=== PATIENT | male | born 1945 | race Caucasian/White ===

== ENCOUNTER 2016-12-10 21:06 | Inpatient (IN) | payer OTHER ==
--- NOTE | ~2016-12-10 | HP ---
History And Physical [address] [place]. [address] NAME: NATALEE FERRELL : 49 STATUS : ADM Anthony PAT#: [id number] AGE: 71 ADM/REG DATE : 12/10/16 MR#: [id number] REPORT SERV DATE: 12/11/16 DICTATED BY: FARIDA PIZARRO JR. DATE: 12/11/16 REPORT STATUS : Draft TRANSCRIBED BY: MODGirish DATE: 12/11/16 DATE OF ADMISSION: 12/10/2016 CHIEF COMPLAINT: Hernia. HISTORY OF PRESENT ILLNESS: This is a 71-year-old male who presented to the emergency department with 3 days history of swelling in the right groin. He says he has had a history of hernia for at least a year or so, but it has worsened. He has been unable to eat. He has had no good bowel movement. He has been able to void. He denies any vomiting. He was found to have hernia in the ER which has not been able to be reduced. He did have a CT scan which reportedly showed the hernia containing parts of bowel but no evidence of any obstruction. He is admitted for additional evaluation and treatment. PAST MEDICAL HISTORY: His past medical history is remarkable for history of thyroid disease and gout. No other known surgery. MEDICATIONS: Hydrocodone, gout medication, and Synthroid of unknown dose. FAMILY HISTORY: Remarkable for hypertension. SOCIAL HISTORY: He lives with his son. He does not smoke or drink. He is retired. REVIEW OF SYSTEMS: No fever or chills. HEENT: Negative. NEUROLOGIC: No acute symptoms. SKIN: Negative. RESPIRATORY: Negative. CV: No symptoms. GI: As above. : As above. MUSCULOSKELETAL: Some swelling. ENDOCRINE: Negative. HEMATOLOGIC: Negative. IMMUNOLOGIC: Negative. PSYCHIATRIC: Negative. PHYSICAL EXAMINATION: GENERAL: Exam shows an elderly male, who is in no acute distress. VITAL SIGNS: The temperature is 99, blood pressure is 135/96, heart rate is 109, and respirations 18. HEENT: Head and neck exam shows pupils are equal and reactive. He is edentulous. Mucous membranes are slightly dry. NECK: Supple. LUNGS: His lungs are clear bilaterally. CARDIOVASCULAR: Exam shows normal S1, S2 without murmur. History And Physical [address] [address] NAME: NATALEE FERRELL : 49 STATUS : ADM Anthony PAT#: [id number] AGE: 71 ADM/REG DATE : 12/10/16 MR#: [id number] REPORT SERV DATE: 12/11/16 DICTATED BY: FARIDA PIZARRO JR. DATE: 12/11/16 REPORT STATUS : Draft TRANSCRIBED BY: VENKATESH DATE: 12/11/16 ABDOMEN: Soft, nontender. There is a hernia on the right side which is not able to be reducible. It is somewhat tender upon attempts to reduce. There is no erythema. EXTREMITIES: Show no clubbing, cyanosis, or edema. Affect, there appears to be some evidence of mental slowness. DATA: Laboratory studies are reviewed and remarkable for a sodium of 124. IMPRESSION: 1. Incarcerated hernia without evidence of strangulation. 2. Hyponatremia. PLAN: We will plan to proceed with admission, give IV fluids for hydration. We will go ahead and place Carey catheter to decompress the bladder and look towards repairing the hernia and labs were corrected from 12/12/2016. BEATRIS/VENKATESH Farida Pizarro Jr., M.D. / [id number] CC: Isabel Hayes Jr., M.D.
--- NOTE | ~2016-12-10 | DS ---
Discharge Summary [facility] [address] [place]. [address] NAME: NATALEE FERRELL : 49 STATUS : DIS IN PAT#: [id number] AGE: 71 ADM/REG DATE : 12/10/16 MR#: [id number] REPORT SERV DATE: 12/21/16 DICTATED BY: FARIDA PIZARRO JR. DATE: 12/20/16 REPORT STATUS : Draft TRANSCRIBED BY: VENKATESH DATE: 12/20/16 Data Collection from hospitalization DISCHARGE DIAGNOSIS(ES): 1. Incarcerated inguinal hernia. 2. History of thyroid disease. 3. Gout. 4. Hyponatremia. CONSULTATIONS: Severiano Butler M.D. PROCEDURES PERFORMED: 1. CT of the abdomen and pelvis without contrast, 12/10/2016. 2. Repair of incarcerated right inguinal hernia with right orchiectomy, 12/12/2016. PATHOLOGY: Inguinal hernia sac, hyperemic, fibrofatty connective tissue with edema and reactive stromal cells, no neoplasm. Testicle, right inguinal orchiectomy, atrophic, no neoplasm identified. MEDICATIONS: Zyloprim 300 mg daily, Synthroid 75 mcg daily, and Hayward 10/325 one three times daily as needed. CONDITION AT DISCHARGE: Upon discharge, he did appear to be doing well and had no complaints. DISPOSITION: He had been discharged home to continue a soft diet with activity as discussed. He was to call my office for an appointment for 10 to 14 days. Follow up with Dr. Jose Mendoza on 12/19/2016. HOSPITAL COURSE: This 71-year-old male had presented to the emergency department with a 3- day history of swelling in the right groin. He said that he had a history of hernia for at least a year or so but it had worsened. He had been unable to eat. He had had no good bowel movement. He had been able to void. He denied any vomiting. He was found to have a hernia in the emergency room which had not been able to be reduced. He did have a CT scan which reportedly showed the hernia containing parts of bowel but no evidence of any obstruction. He was admitted for additional evaluation and treatment. Upon admission to the hospital, he had been placed on oxygen at 2 to 3 L by nasal cannula as needed. He was begun on an n.p.o. diet. He had been placed on IV fluids with normal saline at 125 mL/h. He was placed on Dilaudid at 0.5 to 1 mg IV every two hours as needed as well as Zofran 4 mg IV every 8 hours as needed. He did undergo the above CT of the abdomen and pelvis without contrast while in the emergency room. Following the day of admission, he was continued on his current medications and had no new complaints noted. Surgery had been discussed with the patient, and he was agreeable to proceed. He had been taken to the operating room on 12/12/2016 where he did undergo the above inguinal hernia repair as well as orchiectomy. He did tolerate this well and was transferred to the recovery room. On postop day #1, he did appear to be doing well and had no complaints. His diet was being slowly advanced. He had also been seen by Dr. Severiano Butler Jr, as he was noted to be hyponatremic. At that point, he had received 3 L of normal saline and infusion as well as lactated Ringer's since Discharge Summary [address] [address] NAME: NATALEE FERRELL : 49 STATUS : DIS IN PAT#: [id number] AGE: 71 ADM/REG DATE : 12/10/16 MR#: [id number] REPORT SERV DATE: 12/21/16 DICTATED BY: FARIDA PIZARRO JR. DATE: 12/20/16 REPORT STATUS : Draft TRANSCRIBED BY: VENKATESH DATE: 12/20/16 his initial presentation and had appeared to be normal volemic and was experiencing a reasonable appetite and oral intake. His TSH was noted to be elevated at 90.6. However, it was unclear his adherence to his medical regimen at home, but considering his elevated TSH level and is unknown dosage at the time of entry, it was unlikely that he had been taking his medication as prescribed and his sodium had trended from 124 to 139 and back to 127 with noted IV hydration. He had been restarted on his Synthroid and was also placed on a 1200 mL fluid restriction. On 12/14/2016, the patient did look better, and his Carey catheter was removed. His labs were still being monitored. His sodium was at 127. He did remain in stable condition and as he continued to do well was then discharged on 12/15/2016 with the above instructions. Information collected by: Trevon Luna. I submit the above information as my discharge summary. RW/MODL Farida Pizarro Jr., M.D. / [id number] CC: Isabel Hayes Jr., M.D. Donald Franklin Jr, M.D.
--- NOTE | ~2016-12-10 | OP ---
Record Of Operation [facility] [address] [place]. [address] NAME: NATALEE FERRELL : 49 STATUS : ADM IN PAT#: [id number] AGE: 71 ADM/REG DATE : 12/10/16 MR#: [id number] REPORT SERV DATE: 12/13/16 DICTATED BY: FARIDA PIZARRO JR. DATE: 12/12/16 REPORT STATUS : Draft TRANSCRIBED BY: MODL DATE: 12/12/16 DATE OF PROCEDURE: 12/12/2016 SURGEON: Dr. Farida Pizarro. MANAGER WATER: Fausto Gallego. PROCEDURE: Repair of incarcerated right inguinal hernia with right orchiectomy. PREOPERATIVE DIAGNOSIS: Incarcerated inguinal hernia. POSTOPERATIVE DIAGNOSIS: Incarcerated inguinal hernia. ANESTHESIA: General. INDICATIONS: This patient had presented with inguinal hernia which was irreducible. This appeared to be consistent with chronic incarceration. He also had severe hyponatremia and hypothyroidism. He was given IV fluids with partial correction of his hyponatremia and operative repair of the hernia was indicated. FINDINGS: On exploration of the area, there was incarcerated indirect inguinal hernia. The hernia sac did contain the cecum and appendix with some fluid. All bowel was viable. This was reduced. The sac was excised. There was just swelling of the testicle with gelatinous material around it. It was felt that because of the size of the indirect defect that satisfactory repair could not be accomplished without sacrifice of the testicle and especially with the abnormal appearance, it was felt this was appropriate and this allowed better inguinal floor repair. No additional findings were encountered. DESCRIPTION OF PROCEDURE: With adequate general anesthesia, the patient was placed in the supine position. The abdomen was prepped and draped sterilely. A curvilinear incision was made in the groin and incision deepened down through the subcutaneous tissues. The fascia and the external oblique was opened and the underlying hernia sac was identified. This was opened to allow decompression of the fluid and the fascia was opened to allow reduction of the bowel back from the sac in the scrotum. Then the indirect area was opened to allow reduction of the contents back into the peritoneal cavity. Then, the cord was identified and the testicle was identified. It was noted there was extreme swelling. This was dissected free of the sac and again it was elected to proceed with excision of the testicle. The vessels were clamped and divided securing all bleeders with ligatures of silk and also the sac with suture ligature and then this was submitted to Pathology as additional specimen. Bleeding was then assured. Then a Parietex ProGrip mesh was utilized to repair the floor securing it medially to pubic tubercle, superiorly conjoined tendon, transversalis, and inferior to the inguinal ligament. This produced satisfactory repair of the internal, the external oblique was then closed over this with running 2-0 Vicryl, subcutaneous tissues with 3-0 Vicryl, skin with dermal Monocryl. Sterile dressings were applied. The patient left the operating room in satisfactory condition. Record Of Operation [facility] [address] [place]. [address] NAME: NATALEE FERRELL : 49 STATUS : ADM IN [facility]#: [id number] AGE: 71 ADM/REG DATE : 12/10/16 MR#: [id number] REPORT SERV DATE: 12/13/16 DICTATED BY: FARIDA PIZARRO JR. DATE: 12/12/16 REPORT STATUS : Draft TRANSCRIBED BY: VENKATESH DATE: 12/12/16 ESTIMATED BLOOD LOSS: Was 50 mL. BEATRIS/VENKATESH Farida Pizarro Jr., M.D. / [id number] CC: Isabel Hayes Jr., M.D.
--- NOTE | ~2016-12-10 | CN ---
Consultation Report [facility] [address] [place]. [address] NAME: NATALEE FERRELL : 49 STATUS : ADM IN PAT#: [id number] AGE: 71 ADM/REG DATE : 12/10/16 MR#: [id number] REPORT SERV DATE: 12/13/16 DICTATED BY: TO WHYTE JR DATE: 12/13/16 REPORT STATUS : Draft TRANSCRIBED BY: MODL DATE: 12/13/16 CONSULTATION DATE OF CONSULTATION: REASON FOR CONSULTATION: Hyponatremia. HISTORY OF PRESENT ILLNESS: This is a fairly pleasant 71-year-old male patient, who reports to [facility] with a primary complaint on 12/11/2016 of probable hernia. He had swelling for three days prior to his right groin and was evaluated in the emergency department. CT scan reportedly showed hernia containing part of his bowel with no evidence of obstruction and he was admitted to the services of Dr. Liao for additional recommendations and treatment. He underwent surgical repair on 12/12/2016, of incarcerated right inguinal hernia with orchidectomy under general anesthesia. In review of his records, he did receive over his admission since 12/11/2016, 3 L of normal saline, as well as lactated Ringer's in the operative theater. It appears on review of his laboratories that are available at least at this point here at [facility], he is chronically hyponatremic with an entry sodium of 124, rising to 127 on 12/11/2016, on 12/12/2016 at 130, and again today of 127, prompting referral to our service for evaluation for hyponatremia. The patient is awake and alert, sitting at the bedside this afternoon. He is a rather poor historian, he is awake and alert to assessment. He does interact well and answer questions. He however does not have a very good grasp on his medical history. PAST MEDICAL HISTORY: By previous dictations show to be positive for hypothyroidism and gout. FAMILY HISTORY: Positive for hypertension. No evidence of end-stage renal disease or chronic kidney disease. ALLERGIES: HE LISTS NO KNOWN ALLERGIES OF HIS ACTIVE MEDICATIONS AT HOME. HOME MEDICATIONS: Active medications at home include Apex 1 tablet p.o. t.i.d. p.r.n. gout, medication which was initially undefined, which is now dosed I believe with allopurinol, and also a thyroid medication which was undefined, which was eventually found to be Synthroid. Reviewed with the pharmacy REVIEW OF SYSTEMS: review of systems is completed. Please see HPI for pertinent details. Again, the patient is a rather spotty historian and very little in the way of medical history is gained from discussion this morning. SOCIAL HISTORY: No ETOH. No illicit drugs. Positive for smokeless tobacco. Declines chronic smoking or other tobacco abuse. Consultation Report [address] [place]. [address] NAME: NATALEE FERRELL : 49 STATUS : ADM IN PAT#: [id number] AGE: 71 ADM/REG DATE : 12/10/16 MR#: [id number] REPORT SERV DATE: 12/13/16 DICTATED BY: TO WHYTE JR DATE: 12/13/16 REPORT STATUS : Draft TRANSCRIBED BY: VENKATESH DATE: 12/13/16 PHYSICAL EXAMINATION: VITAL SIGNS: Blood pressure 119/68, he is on 2 L nasal cannula and saturating at 99%, temperature 96.6, respiratory rate of 14, heart rate is 67 beats per minute and regular. GENERAL: He is awake, alert, and oriented x3. Sitting at bedside during evaluation. HEENT: Normocephalic and atraumatic. Normal ocular movements. No scleral icterus. No conjunctival pallor is appreciated. NECK: Supple without thyromegaly. No JVD or mass. CHEST: Shows positive S1 and S2. No rubs or gallops. LUNGS: Diminished with normal expansion and effort bilaterally. GASTROINTESTINAL: Positive bowel sounds to all four quadrants. No appreciable mass or tenderness. GENITOURINARY: Examination is deferred. He does have a Carey catheter to bedside drainage with clear yellow urine. NEUROLOGIC: He appears to be grossly intact and nonfocal to rudimentary testing. SKIN: Warm, dry, and intact to visualized surfaces with exception of his surgical wound in his abdominal area. PSYCHIATRIC: Neurologically he is intact and is of appropriate mood and affect. LABORATORY AND DIAGNOSTIC DATA: Pertinent laboratories and imaging to this evaluation; sodium 127; potassium 4.5, chloride 99, CO2 of 24, BUN 8, creatinine 1.10. Reflected GFR at 68 mL/minutes. Glucose of 109, calcium 7.8, magnesium 1.8. Total protein 7.2, albumin 3.2, alkaline phos 51, ALT and AST 39 and 16 respectively. WBC is 11.5, RBC 3.57, platelets 350, hemoglobin 11.3, hematocrit 33.0, and TSH at 90.6. IMPRESSION AND PLAN: This is a pleasant 71-year-old male patient, admitted to Dr. Liao's service for reasons as stated in the HPI. He is postop day #2, with what appears to be some level of chronic hyponatremia. He has received 3 L of normal saline and infusion as well of lactated Ringer's since initial presentation here at [facility]. He appears to be at this point normal volemic and is experiencing reasonable appetite and p.o. intake. He continues to receive normal saline via a peripheral IV at 100 mL/h. His TSH is noted to be elevated at 90.6, and it is unclear his adherence to his medical regimen at home, but considering his elevated TSH level and is unknown dosage at time of entry, it is unlikely that he has been taking his medications as prescribed. His sodium has trended from 124 to 139, and back to 127, with noted IV hydration as above. 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 Fortunately, his Synthroid has been restarted here and we will now place him on a 1200 mL fluid restriction, check urine osmolality, serum osmolality, and urine sodium, and identify any other underlying mechanisms that may be precipitating his hyponatremia in review of his medications. Currently, it does not appear that he has active medications at home or here inpatient that may be further worsening his what appears to be a chronic hyponatremia. We will follow him with serial laboratories, recheck his sodium in the morning, and defer his TSH management to the primary team, and likely his outpatient physician on discharge. Further modification of treatment plan may be made based on clinical presentation of the patient's laboratory results, further consultation with renal Consultation Report [facility] [id number] [place]. [address] NAME: NATALEE FERRELL : 49 STATUS : ADM IN [facility] WITH [facility]#: [id number] AGE: 71 ADM/REG DATE : 12/10/16 MR#: [id number] REPORT SERV DATE: 12/13/16 DICTATED BY: TO WHYTE JR DATE: 12/13/16 REPORT STATUS : Draft TRANSCRIBED BY: VENKATESH DATE: 12/13/16 attending. We appreciate the consultation. We are glad to follow with you. DICTATED BY: Hever Walters NP JR/VENKATESH To Whyte Jr, M.D. / [id number] CC: Isabel Hayes Jr., M.D.
[2016-12-10 20:08] LABS: BASOPHILS 0.1 %; BASOPHILS ABSOLUTE 0.01 10/3/uL (0.0-0.16); EOSINOPHILS 5.4 %; EOSINOPHILS ABSOLUTE 0.47 10/3/uL (0.0-0.53); ER CBC TAT 0 Hrs 07 Mins; HEMATOCRIT 37.8 % (40.0-51.0); HEMOGLOBIN 13.3 g/dL (13.6-17.8); IMMATURE GRANULOCYTES 0.2 %; IMMATURE GRANULOCYTES ABSOLUTE 0.02 10/3/uL (0.0-0.11); LYMPHOCYTES 30.7 %; LYMPHOCYTES ABSOLUTE 2.67 10/3/uL (0.67-4.30); MEAN CORPUS HGB CONC 35.2 g/dL (32.0-36.0); MEAN CORPUSCULAR HEMOGLOB 31.4 pg (26.0-34.0); MEAN CORPUSCULAR VOLUME 89.4 fL (80-100); MEAN PLATELET VOLUME 8.8 fL (9.2-13.0); MONOCYTES 7.2 %; MONOCYTES ABSOLUTE 0.63 10/3/uL (0.21-1.20); NEUTROPHILS 56.4 %; NEUTROPHILS ABSOLUTE 4.91 10/3/uL (2.02-8.40); PLATELET COUNT 375 10/3/uL (150-400); RED CELL COUNT 4.23 10/6/uL (4.7-6.1); WHITE BLOOD CELLS 8.7 10/3/uL (4.5-10.5)
[2016-12-10 20:09] LABS: MANUAL DIFF NO %
[2016-12-10 20:22] LABS: A/G RATIO 0.9 (0.7-1.9); ALKALINE PHOSPHATASE 64 U/L (45-117); BUN (BLOOD UREA NITROGEN) 10 MG/DL (6-23); CALCIUM, SERUM 9.1 MG/DL (8.5-10.4); CHLORIDE, SERUM 88 MMOL/L (96-112); CO2 (CARBON DIOXIDE) 28 MMOL/L (24-34); CREATININE 1.27 MG/DL (0.70-1.30); GFR AFRICAN AMERICAN 66 ML/MIN (>=60); GFR NON AFRICAN AMERICAN 57 ML/MIN (>=60); GLOBULIN 4.7 G/DL (2.5-4.1); GLUCOSE, SERUM 97 MG/DL (60-99); POTASSIUM, SERUM 3.7 MMOL/L (3.5-5.3); SGOT(AST) 104 U/L (5-40); SGPT(ALT) 62 U/L (5-65); SODIUM, SERUM 124 MMOL/L (135-148); TOTAL BILIRUBIN 0.8 MG/DL (0-1.2); TOTAL PROTEIN 8.7 G/DL (6.0-8.5)
[2016-12-10 21:12] LABS: ASCORBIC ACID (UR NOT ORDER) NEG (NEG); BILIRUBIN, URINE NEGATIVE (NEG); ER URINALYSIS TAT 0 Hrs 09 Mins; KETONE, URINE NEGATIVE (NEG); LEUKOCYTE ESTERASE(NOT OR TRACE (NEG); NITRITE (URINE) NEG (NEG); WBC (NOT ORDERED) (RFLEX) 8 (0-5)
[2016-12-10] MEDS ORDERED: Z300 PO (22:45)
[2016-12-10] MEDS ORDERED: NORCO1 TAB PO (22:45)
[2016-12-10] MEDS ORDERED: SYN075 PO (22:46)
[2016-12-11 10:09] LABS: BUN (BLOOD UREA NITROGEN) 8 MG/DL (6-23); CALCIUM, SERUM 8.5 MG/DL (8.5-10.4); CHLORIDE, SERUM 95 MMOL/L (96-112); CO2 (CARBON DIOXIDE) 26 MMOL/L (24-34); CREATININE 1.07 MG/DL (0.70-1.30); GFR AFRICAN AMERICAN 82 ML/MIN (>=60); GFR NON AFRICAN AMERICAN 70 ML/MIN (>=60); GLUCOSE, SERUM 92 MG/DL (60-99); POTASSIUM, SERUM 4.4 MMOL/L (3.5-5.3); SODIUM, SERUM 127 MMOL/L (135-148); T3 UPTAKE 27 % (30-45)
[2016-12-11 10:13] LABS: T4 (THYROXINE) TOTAL < 0.5 MCG/DL (4.5-12.0)
[2016-12-12 06:06] LABS: BASOPHILS 0.1 %; BASOPHILS ABSOLUTE 0.01 10/3/uL (0.0-0.16); EOSINOPHILS 4.9 %; EOSINOPHILS ABSOLUTE 0.37 10/3/uL (0.0-0.53); HEMOGLOBIN 11.6 g/dL (13.6-17.8); IMMATURE GRANULOCYTES 0.3 %; IMMATURE GRANULOCYTES ABSOLUTE 0.02 10/3/uL (0.0-0.11); LYMPHOCYTES 29.7 %; LYMPHOCYTES ABSOLUTE 2.22 10/3/uL (0.67-4.30); MEAN CORPUS HGB CONC 34.4 g/dL (32.0-36.0); MEAN PLATELET VOLUME 8.9 fL (9.2-13.0); MONOCYTES ABSOLUTE 0.52 10/3/uL (0.21-1.20); NEUTROPHILS ABSOLUTE 4.34 10/3/uL (2.02-8.40); PLATELET COUNT 352 10/3/uL (150-400); RED CELL COUNT 3.63 10/6/uL (4.7-6.1); WHITE BLOOD CELLS 7.5 10/3/uL (4.5-10.5)
[2016-12-12 06:07] LABS: HEMATOCRIT 33.7 % (40.0-51.0); MANUAL DIFF NO %; MEAN CORPUSCULAR VOLUME 92.8 fL (80-100)
[2016-12-12 06:24] LABS: A/G RATIO 0.8 (0.7-1.9); ALBUMIN 3.2 G/DL (3.5-5.0); BUN (BLOOD UREA NITROGEN) 7 MG/DL (6-23); CALCIUM, SERUM 7.9 MG/DL (8.5-10.4); CHLORIDE, SERUM 96 MMOL/L (96-112); CO2 (CARBON DIOXIDE) 30 MMOL/L (24-34); CREATININE 1.14 MG/DL (0.70-1.30); GFR AFRICAN AMERICAN 76 ML/MIN (>=60); GFR NON AFRICAN AMERICAN 65 ML/MIN (>=60); GLOBULIN 3.8 G/DL (2.5-4.1); GLUCOSE, SERUM 78 MG/DL (60-99); POTASSIUM, SERUM 4.3 MMOL/L (3.5-5.3); SGOT(AST) 71 U/L (5-40); SGPT(ALT) 42 U/L (5-65); SODIUM, SERUM 130 MMOL/L (135-148)
[2016-12-12 06:25] LABS: ALKALINE PHOSPHATASE 52 U/L (45-117); TOTAL BILIRUBIN 1.7 MG/DL (0-1.2)
[2016-12-12 17:49] LABS: BASOPHILS 0.4 %; BASOPHILS ABSOLUTE 0.03 10/3/uL (0.0-0.16); EOSINOPHILS 4.7 %; EOSINOPHILS ABSOLUTE 0.39 10/3/uL (0.0-0.53); HEMATOCRIT 33.6 % (40.0-51.0); HEMOGLOBIN 11.5 g/dL (13.6-17.8); IMMATURE GRANULOCYTES 0.1 %; IMMATURE GRANULOCYTES ABSOLUTE 0.01 10/3/uL (0.0-0.11); LYMPHOCYTES 26.3 %; LYMPHOCYTES ABSOLUTE 2.16 10/3/uL (0.67-4.30); MEAN CORPUS HGB CONC 34.2 g/dL (32.0-36.0); MEAN CORPUSCULAR HEMOGLOB 31.4 pg (26.0-34.0); MEAN CORPUSCULAR VOLUME 91.8 fL (80-100); MEAN PLATELET VOLUME 8.5 fL (9.2-13.0); MONOCYTES 5.4 %; MONOCYTES ABSOLUTE 0.44 10/3/uL (0.21-1.20); NEUTROPHILS 63.1 %; NEUTROPHILS ABSOLUTE 5.19 10/3/uL (2.02-8.40); PLATELET COUNT 328 10/3/uL (150-400); RBC DISTRIBUTION WIDTH 12.9 % (12.0-16.0); RED CELL COUNT 3.66 10/6/uL (4.7-6.1); WHITE BLOOD CELLS 8.2 10/3/uL (4.5-10.5)
[2016-12-12 17:50] LABS: MANUAL DIFF NO %
[2016-12-12 18:02] LABS: BUN (BLOOD UREA NITROGEN) 7 MG/DL (6-23); CHLORIDE, SERUM 97 MMOL/L (96-112); CREATININE 1.14 MG/DL (0.70-1.30); GFR AFRICAN AMERICAN 76 ML/MIN (>=60); GFR NON AFRICAN AMERICAN 65 ML/MIN (>=60); GLUCOSE, SERUM 86 MG/DL (60-99); POTASSIUM, SERUM 4.1 MMOL/L (3.5-5.3); SODIUM, SERUM 130 MMOL/L (135-148)
[2016-12-12 18:03] LABS: CO2 (CARBON DIOXIDE) 23 MMOL/L (24-34)
[2016-12-13 06:41] LABS: BASOPHILS 0 %; EOSINOPHILS 0 %; HEMOGLOBIN 11.3 g/dL (13.6-17.8); IMMATURE GRANULOCYTES 0.3 %; IMMATURE GRANULOCYTES ABSOLUTE 0.03 10/3/uL (0.0-0.11); LYMPHOCYTES 7.4 %; LYMPHOCYTES ABSOLUTE 0.85 10/3/uL (0.67-4.30); MANUAL DIFF NO %; MEAN CORPUS HGB CONC 34.2 g/dL (32.0-36.0); MEAN CORPUSCULAR HEMOGLOB 31.7 pg (26.0-34.0); MEAN CORPUSCULAR VOLUME 92.4 fL (80-100); MEAN PLATELET VOLUME 8.7 fL (9.2-13.0); MONOCYTES 3.8 %; MONOCYTES ABSOLUTE 0.44 10/3/uL (0.21-1.20); NEUTROPHILS 88.5 %; NEUTROPHILS ABSOLUTE 10.13 10/3/uL (2.02-8.40); PLATELET COUNT 350 10/3/uL (150-400); RBC DISTRIBUTION WIDTH 12.9 % (12.0-16.0); RED CELL COUNT 3.57 10/6/uL (4.7-6.1); WHITE BLOOD CELLS 11.5 10/3/uL (4.5-10.5)
[2016-12-13 06:59] LABS: A/G RATIO 0.8 (0.7-1.9); ALBUMIN 3.2 G/DL (3.5-5.0); ALKALINE PHOSPHATASE 51 U/L (45-117); BUN (BLOOD UREA NITROGEN) 8 MG/DL (6-23); CALCIUM, SERUM 7.8 MG/DL (8.5-10.4); CHLORIDE, SERUM 99 MMOL/L (96-112); CO2 (CARBON DIOXIDE) 24 MMOL/L (24-34); GFR AFRICAN AMERICAN 79 ML/MIN (>=60); GFR NON AFRICAN AMERICAN 68 ML/MIN (>=60); POTASSIUM, SERUM 4.5 MMOL/L (3.5-5.3); SGOT(AST) 60 U/L (5-40); SGPT(ALT) 39 U/L (5-65); SODIUM, SERUM 127 MMOL/L (135-148); TOTAL PROTEIN 7.2 G/DL (6.0-8.5)
[2016-12-13 07:00] LABS: GLUCOSE, SERUM 109 MG/DL (60-99); TOTAL BILIRUBIN 0.7 MG/DL (0-1.2)
[2016-12-13 13:34] LABS: OSMOLALITY, URINE 392 MOSM/KG (50-1200)
[2016-12-13 13:42] LABS: SODIUM, URINE 82 MEQ/L
[2016-12-14 05:56] LABS: BASOPHILS 0.1 %; BASOPHILS ABSOLUTE 0.01 10/3/uL (0.0-0.16); EOSINOPHILS 1.7 %; EOSINOPHILS ABSOLUTE 0.17 10/3/uL (0.0-0.53); HEMATOCRIT 33.4 % (40.0-51.0); HEMOGLOBIN 11.4 g/dL (13.6-17.8); IMMATURE GRANULOCYTES 0.3 %; IMMATURE GRANULOCYTES ABSOLUTE 0.03 10/3/uL (0.0-0.11); LYMPHOCYTES 22.2 %; LYMPHOCYTES ABSOLUTE 2.28 10/3/uL (0.67-4.30); MEAN CORPUS HGB CONC 34.1 g/dL (32.0-36.0); MEAN CORPUSCULAR HEMOGLOB 31.5 pg (26.0-34.0); MEAN CORPUSCULAR VOLUME 92.3 fL (80-100); MEAN PLATELET VOLUME 9.2 fL (9.2-13.0); MONOCYTES 6.1 %; MONOCYTES ABSOLUTE 0.63 10/3/uL (0.21-1.20); NEUTROPHILS 69.6 %; NEUTROPHILS ABSOLUTE 7.14 10/3/uL (2.02-8.40); PLATELET COUNT 391 10/3/uL (150-400); RBC DISTRIBUTION WIDTH 12.8 % (12.0-16.0); RED CELL COUNT 3.62 10/6/uL (4.7-6.1); WHITE BLOOD CELLS 10.3 10/3/uL (4.5-10.5)
[2016-12-14 05:58] LABS: MANUAL DIFF NO %
[2016-12-14 06:31] LABS: ALBUMIN 3.4 G/DL (3.5-5.0); BUN (BLOOD UREA NITROGEN) 10 MG/DL (6-23); CHLORIDE, SERUM 94 MMOL/L (96-112); CO2 (CARBON DIOXIDE) 27 MMOL/L (24-34); CREATININE 1.09 MG/DL (0.70-1.30); GFR AFRICAN AMERICAN 80 ML/MIN (>=60); GFR NON AFRICAN AMERICAN 69 ML/MIN (>=60); GLUCOSE, SERUM 105 MG/DL (60-99); PHOSPHORUS, SERUM 1.8 MG/DL (2.5-4.5); POTASSIUM, SERUM 4.4 MMOL/L (3.5-5.3); SODIUM, SERUM 127 MMOL/L (135-148)
[2016-12-14 06:32] LABS: CALCIUM, SERUM 9.2 MG/DL (8.5-10.4)
[2016-12-14 19:18] LABS: BUN (BLOOD UREA NITROGEN) 11 MG/DL (6-23); CALCIUM, SERUM 8.8 MG/DL (8.5-10.4); CHLORIDE, SERUM 93 MMOL/L (96-112); CO2 (CARBON DIOXIDE) 31 MMOL/L (24-34); CREATININE 1.11 MG/DL (0.70-1.30); GFR AFRICAN AMERICAN 78 ML/MIN (>=60); GFR NON AFRICAN AMERICAN 67 ML/MIN (>=60); GLUCOSE, SERUM 115 MG/DL (60-99); POTASSIUM, SERUM 4.3 MMOL/L (3.5-5.3); SODIUM, SERUM 130 MMOL/L (135-148)
[2016-12-15 05:18] LABS: BASOPHILS 0.3 %; BASOPHILS ABSOLUTE 0.03 10/3/uL (0.0-0.16); EOSINOPHILS 4.6 %; EOSINOPHILS ABSOLUTE 0.42 10/3/uL (0.0-0.53); HEMATOCRIT 33.1 % (40.0-51.0); HEMOGLOBIN 11.2 g/dL (13.6-17.8); IMMATURE GRANULOCYTES 0.1 %; IMMATURE GRANULOCYTES ABSOLUTE 0.01 10/3/uL (0.0-0.11); LYMPHOCYTES 30.9 %; LYMPHOCYTES ABSOLUTE 2.82 10/3/uL (0.67-4.30); MEAN CORPUS HGB CONC 33.8 g/dL (32.0-36.0); MEAN CORPUSCULAR HEMOGLOB 31.5 pg (26.0-34.0); MONOCYTES 10.6 %; MONOCYTES ABSOLUTE 0.97 10/3/uL (0.21-1.20); NEUTROPHILS 53.5 %; NEUTROPHILS ABSOLUTE 4.88 10/3/uL (2.02-8.40); PLATELET COUNT 365 10/3/uL (150-400); RBC DISTRIBUTION WIDTH 12.8 % (12.0-16.0); RED CELL COUNT 3.56 10/6/uL (4.7-6.1); WHITE BLOOD CELLS 9.1 10/3/uL (4.5-10.5)
[2016-12-15 05:20] LABS: MANUAL DIFF NO %
[2016-12-15 05:24] LABS: BUN (BLOOD UREA NITROGEN) 10 MG/DL (6-23); CALCIUM, SERUM 8.9 MG/DL (8.5-10.4); CHLORIDE, SERUM 92 MMOL/L (96-112); CO2 (CARBON DIOXIDE) 28 MMOL/L (24-34); CREATININE 1.07 MG/DL (0.70-1.30); GFR AFRICAN AMERICAN 82 ML/MIN (>=60); GFR NON AFRICAN AMERICAN 70 ML/MIN (>=60); GLUCOSE, SERUM 107 MG/DL (60-99); POTASSIUM, SERUM 3.8 MMOL/L (3.5-5.3); SODIUM, SERUM 128 MMOL/L (135-148)
== END 2016-12-15 14:30 | disposition home or self-care (01) | DRG 351 ==
LOC: ER 21:06 → 5SO 22:21
PROVIDERS: Registered Nurse; Specialist
PROC: 0YQ50ZZ Repair Right Inguinal Region, Open Approach (ICD-10-PCS; principal; 2016-12-12 15:15)
PROC: 0VT90ZZ Resection of Right Testis, Open Approach (ICD-10-PCS; 2016-12-12 15:15)
DX: K40.30 Unilateral inguinal hernia, with obstruction, without gangrene, not specified as recurrent (principal); E87.1 Hypo-osmolality and hyponatremia; M10.9 Gout, unspecified; E03.9 Hypothyroidism, unspecified; Z72.0 Tobacco use
CPT/HCPCS: 74176; 80048; 80053; 80069; 81001; 82962; 83735; 83930; 83935; 84300; 84436; 84443; 84479; 85025; 88302; 88305; 93005; 96374; 99285; A9270-GY; C1781; J0690; J1170; J2250; J2370; J2405; J2710; J3010